=== PATIENT | male | born 1975 | race Caucasian/White ===

== ENCOUNTER 2019-09-04 07:11 | Emergency (ER) | payer OTHER ==
[2019-09-04] MEDS ORDERED: Cyclobenzaprine 10 MG Tab PO ONE (07:31)
--- NOTE | 2019-09-04 07:51 | EDM.PDOC ---
ED HPI GENERAL MEDICAL PROBLEM - General Chief Complaint: Back Pain or Injury Stated Complaint: FELL IN SNOW- HURT BACK Time Seen by Provider: 09/04/19 07:47 Source of Information: Reports: Patient History Limitations: Reports: No Limitations - History of Present Illness INITIAL COMMENTS - FREE TEXT/NARRATIVE: Patient is 44-year-old male with a past medical history of diabetes presenting with chief complaint of low back pain. Low back pain started after falling this morning and some ice. Pain started after the injury around 5:30 AM. Patient states he slipped and fell landing on his lower back, right side. Patient did not strike his head did not suffer any loss of consciousness. Patient was ambulatory immediately afterwards and pain gradually worsened as he tried to drive to work. Patient denies any radiation of the pain. Pain is primarily in the mid and right-sided low back. Patient denies any urinary incontinence, saddle paresthesias, leg weakness. Patient took ibuprofen with minimal relief. In addition to that documented in the HPI above, the additional ROS was obtained : Constitutional: Denies fevers or chills Eyes: Denies vision changes ENMT: Denies sore throat CV: Denies chest pain Resp: Denies SOB GI: Denies vomiting or diarrhea : Denies painful urination MSK: Per HPI Skin: Denies new rashes Neuro: Denies new numbness or tingling or weakness Endocrine: Denies unexpected weight loss Heme: Denies bleeding disorders I have reviewed the triage vital signs Const: Well nourished, well developed, appears stated age Eyes: PERRL, no conjunctival injection HENT: NCAT, Neck supple without meningismus CV: RRR, Warm, well-perfused extremities RESP: CTAB, Unlabored respiratory effort GI: soft, non-tender, non-distended, no masses MSK: Mild midline lumbar tenderness in the L2-L3 area and right-sided paraspinal tenderness. No step-offs noted. No gross deformities appreciated Skin: Warm, dry. 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 Lower extremity motor and sensory intact.. Psych: Appropriate mood and affect Assessment and plan Patient is a 44-year-old male presenting with low back pain. The x-ray demonstrates possible old compression fracture around L1. However based on clinical exam, mechanism of injury and appearance of x-ray I believe this is an old fracture and not acute. In addition, the patient has no signs or symptoms of cauda equina or spinal cord injury. Patient will be discharged home with pain medication and strict return precautions. All questions addressed and answered. Patient agrees with plan. Right lower back Pain Score (Numeric/FACES): 6 - Related Data Allergies Allergy/AdvReac Type Severity Reaction Status Date / Time amoxicillin Allergy Rash Verified 09/04/19 07:25 morphine Allergy Nausea and Verified 09/04/19 07:25 Vomiting Home Meds: Home Meds Dapagliflozin Propanediol [Farxiga] 10 mg PO DAILY 09/04/19 [History] glipiZIDE [Glucotrol] 10 mg PO DAILY 09/04/19 [History] metFORMIN [Glucophage] 500 mg PO BID 09/04/19 [History] Past Medical History - Past Health History Medical/Surgical History: Denies Medical/Surgical History Endocrine/Metabolic History: Reports: Diabetes, Type II - Infectious Disease History Infectious Disease History: Reports: None Social & Family History - Family History Family Medical History: Noncontributory - Caffeine Use Caffeine Use: Reports: Coffee - Recreational Drug Use Recreational Drug Use: No ED ROS GENERAL - Review of Systems Review Of Systems: See Below ED EXAM,LOWER BACK PAIN/INJURY - Physical Exam Exam: See Below Course - Vital Signs Last Recorded V/S: Last Vital Signs Temp 36.3 C 09/04/19 07:34 Pulse 83 09/04/19 07:34 Resp 19 09/04/19 07:34 BP 145/93 H 09/04/19 07:34 Pulse Ox 97 09/04/19 07:34 - Orders/Labs/Meds Meds: Medications Discontinued Medications Generic Name Dose Route Start Last Admin Trade Name Staci PRN Reason Stop Dose Admin Cyclobenzaprine HCl 10 mg 09/04/19 07:31 09/04/19 08:03 Flexeril PO 09/04/19 07:32 10 mg ONETIME ONE Administration Departure - Departure Time of Disposition: 08:15 Disposition: Home, Self-Care 01 Clinical Impression: Low back pain - Discharge Information Instructions: Musculoskeletal Pain Referrals: PCP,Not In Area [Primary Care Provider] - Forms: ED Department Discharge Additional Instructions: The following information is given to patients seen in the emergency department who are being discharged to home. This information is to outline your options for follow-up care. We provide all patients seen in our emergency department with a follow-up referral. The need for follow-up, as well as the timing and circumstances, are variable depending upon the specifics of your emergency department visit. If you don't have a primary care physician on staff, we will provide you with a referral. We always advise you to contact your personal physician following an emergency department visit to inform them of the circumstance of the visit and for follow-up with them and/or the need for any referrals to a consulting specialist. The emergency department will also refer you to a specialist when appropriate. This referral assures that you have the opportunity for follow-up care with a specialist. All of these measure are taken in an effort to provide you with optimal care, which includes your follow-up. Under all circumstances we always encourage you to contact your private physician who remains a resource for coordinating your care. When calling for follow-up care, please make the office aware that this follow-up is from your recent emergency room visit. If for any reason you are refused follow-up, please contact the [facility] Emergency Department at and asked to speak to the emergency department charge nurse. Sepsis Event Note - Evaluation Sepsis Screening Result: No Definite Risk - Focused Exam Vital Signs: Vital Signs Temp Pulse Resp BP Pulse Ox 09/04/19 07:34 36.3 C 83 19 145/93 H 97 Date Exam was Performed: 09/04/19 Time Exam was Performed: 08:14
--- NOTE | 2019-09-04 08:07 | CR ---
Lumbar spine: AP, lateral and coned-down lateral view centered to the lumbosacral junction. Mild scoliosis is seen. Compression deformity with anterior wedging is seen of L1. Other vertebral body heights are maintained. Disc spaces are maintained. Pedicles are intact. Transverse and spinous processes are intact. Mild scattered anterior endplate osteophytes are seen at the thoracolumbar junction. Impression: 1. Anterior wedging of L1. This is most likely old. Please correlate if this matches patient's clinical symptoms. 2. Endplate osteophytes at the thoracolumbar junction. 3. Mild scoliosis. Diagnostic code #2 Study was dictated in [place] Standard Time
== END 2019-09-04 08:25 | disposition home or self-care (01) ==
LOC: EDSEX 07:11 → MW.ED 07:11
DX: M54.5 Low back pain (principal); E11.9 Type 2 diabetes mellitus without complications; Z88.1 Allergy status to other antibiotic agents; Z88.5 Allergy status to narcotic agent; Z79.84 Long term (current) use of oral hypoglycemic drugs; Z79.899 Other long term (current) drug therapy
CPT/HCPCS: 72100; 99283; A9270

== ENCOUNTER 2020-04-06 14:55 | Emergency (ER) | payer OTHER ==
--- NOTE | 2020-04-06 15:35 | EDM.PDOC ---
ED HPI GENERAL MEDICAL PROBLEM - General Chief Complaint: Lower Extremity Injury/Pain Stated Complaint: BRUISE ON RIGHT LEG Time Seen by Provider: 04/06/20 15:08 Source of Information: Reports: Patient, Old Records History Limitations: Reports: No Limitations - History of Present Illness INITIAL COMMENTS - FREE TEXT/NARRATIVE: 44-year-old male with past medical history of diabetes mellitus presenting with a bruise to the right thigh and scrotal pain. Patient noticed a large bruise to the distal medial aspect of the right thigh approximately 1 week ago. This was not associated with any trauma. It is not painful. Patient denies any hematuria, hemoptysis, epistaxis, gingival bleeding, history of bleeding disorder, or any bruising elsewhere. Denies fatigue. Patient also reports a 2-week history of pain to the right side of the scrotum just cephalad to the epididymis. No history of any trauma. Denies any genital lesions or ulcers, penile discharge, dysuria, urinary frequency, or hematuria. No prior history of STIs. Past medical history: Reviewed, no additional pertinent history. Surgical history: Reviewed in system, no additional pertinent history. Social history: Reviewed in system, no additional pertinent history. Family history: Reviewed in system, no additional pertinent history. PHYSICAL EXAM Vital signs reviewed. Nursing notes reviewed. Constitutional: Awake, alert, non-distressed. Head: Normocephalic, atraumatic. Eyes: EOMI, conjunctiva normal, no discharge, no scleral icterus. Ears, Nose, Throat: External ears and nose normal, moist oral mucosa. No palatal petechiae or gingival bleeding. Cardiovascular: 2+ radial pulse, capillary refill less than 2 seconds. No lower extremity edema. Bilateral lower extremities appear symmetric, no swelling or size discrepancy appreciated. Pulmonary: normal work of breathing, no accessory muscle use. Abdomen/GI: Soft, nontender, nondistended, no guarding or rigidity, no masses. : Mild tenderness to palpation just cephalad to the right epididymis. No testicular swelling or masses. Penis normal on external examination, no discharge or lesions. Musculoskeletal: No deformities. Integumentary: Appropriate color for ethnicity, warm, dry, no pallor or jaundice, no rash. Large contusion noted to the distal medial aspect of the right thigh. No erythema, warmth, or streaking noted to the bilateral lower extremities. Neurologic: Alert, answering questions appropriately, normal speech, no facial droop, moving all extremities well. Psychiatric: Appropriate mood and affect, normal thought process. right groin area Pain Score (Numeric/FACES): 2 - Related Data Allergies Allergy/AdvReac Type Severity Reaction Status Date / Time amoxicillin Allergy Rash Verified 04/06/20 15:10 morphine Allergy Nausea and Verified 04/06/20 15:10 Vomiting Home Meds: Home Meds Dapagliflozin Propanediol [Farxiga] 10 mg PO DAILY 09/04/19 [History] glipiZIDE [Glucotrol] 10 mg PO DAILY 09/04/19 [History] metFORMIN [Glucophage] 500 mg PO BID 09/04/19 [History] Past Medical History - Past Health History Medical/Surgical History: Denies Medical/Surgical History HEENT History: Reports: None Cardiovascular History: Reports: None Respiratory History: Reports: None Gastrointestinal History: Reports: None Genitourinary History: Reports: None Musculoskeletal History: Reports: None Neurological History: Reports: None Psychiatric History: Reports: None Endocrine/Metabolic History: Reports: Diabetes, Type II 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 Hematologic History: Reports: None Immunologic History: Reports: None Oncologic (Cancer) History: Reports: None Dermatologic History: Reports: None - Infectious Disease History Infectious Disease History: Reports: None - Past Surgical History Head Surgeries/Procedures: Reports: None Male Surgical History: Reports: Vasectomy Social & Family History - Family History Family Medical History: Noncontributory - Tobacco Use Smoking Status *Q: Never Smoker - Caffeine Use Caffeine Use: Reports: Coffee - Recreational Drug Use Recreational Drug Use: No Review of Systems - Review of Systems Review Of Systems: See Below ED EXAM, GENERAL - Physical Exam Exam: See Below Course - Vital Signs Text/Narrative:: Patient hemodynamically stable, afebrile, well-appearing, looks nontoxic. Differential diagnosis includes but is not limited to: contusion, coagulopathy, bleeding disorder, DVT, hematoma, orchitis, epididymitis, hernia, testicular torsion, UTI, STI, varicocele, hydrocele, malignancy, etc. Urinalysis shows trace ketones, no blood or evidence of infection. Scrotal ultrasound demonstrated a right-sided varicocele, testicles look structurally normal. Normal blood flow bilaterally. Small bilateral hydroceles. 2 small epididymal cysts on the right side. There is no evidence of coagulopathy such as palatal petechiae or other bruising or bleeding type symptoms, so we did not pursue blood count or coagulopathy work-up at this point. I suspect the patient had some occult trauma which caused him to sustain a contusion on his right thigh. Presentation is not consistent with a DVT, there is no erythema or swelling or pain. No chest discomfort or shortness of breath. There is no associated erythema or induration to suggest cellulitis. No symptoms to suggest an STI or UTI. Urinalysis does not look infected. There is no evidence of an inguinal hernia on examination. We did pursue testicular ultrasound, which showed no evidence of an acute surgical emergency. I did offer to pursue CT imaging of the abdomen/pelvis with contrast given that we have not elucidated the etiology of the patient's pain. At this point, the patient wants to decline a CT scan. I explained that there is a small possibility of renal malignancy or other vascular obstruction causing new onset varicocele and the patient understands the risks of an incomplete work-up by foregoing CT imaging today - he understands and accepts this risk. He wants to try symptomatic treatment with [id number] acetaminophen and ibuprofen and wants to follow-up with the family medicine clinic for further evaluation and treatment. I will also give him contact information for the urology clinic for routine follow-up of the varicocele. He understands that he should come back to the emergency department if his pain worsens or if he develops any new or worsening symptoms. Plan: Patient is stable to discharge home with outpatient primary care and urology clinic follow-up. Strict emergency department return precautions were provided, patient indicated understanding. All questions were answered prior to departure. Discharged in good condition. Last Recorded V/S: Last Vital Signs Temp 36.1 C 04/06/20 15:10 Pulse 71 04/06/20 17:18 Resp 18 04/06/20 17:18 BP 138/75 04/06/20 17:18 Pulse Ox 96 04/06/20 17:18 - Orders/Labs/Meds Orders: Active Orders 24 hr Category Date Time Status Scrotal Duplex Ltd [US] Routine Exams 04/06/20 14:20 Taken Labs: Laboratory Tests 04/06/20 Range/Units 15:40 Urine Color YELLOW Urine Appearance CLEAR Urine pH 5.5 (5.0-8.0) Ur Specific [place] 1.020 (1.001-1.035) Urine Protein NEGATIVE (NEGATIVE) mg/dL Urine Glucose (UA) >=1000 (NEGATIVE) mg/dL Urine Ketones TRACE H (NEGATIVE) mg/dL Urine Occult Blood NEGATIVE (NEGATIVE) Urine Nitrite NEGATIVE (NEGATIVE) Urine Bilirubin NEGATIVE (NEGATIVE) Urine Urobilinogen 0.2 (<2.0) EU/dL Ur Leukocyte Esterase NEGATIVE (NEGATIVE) Departure - Departure Time of Disposition: 17:10 Disposition: Home, Self-Care 01 Condition: Good Clinical Impression: Right inguinal pain, Contusion of thigh Contusion of thigh, right Qualifiers: Encounter type: initial encounter Qualified Code(s): S70.11XA - Contusion of right thigh, initial encounter - Discharge Information *PRESCRIPTION DRUG MONITORING PROGRAM REVIEWED*: Not Applicable *COPY OF PRESCRIPTION DRUG MONITORING REPORT IN PATIENT CORTEZ: Not Applicable Instructions: Muscle Pain, Adult, Contusion, [id number] Referrals: [facility] - Family Practice [Provider Group] - 1 Week (For follow-up of inguinal pain.) Forms: ED Department Discharge Additional Instructions: You were seen in the emergency department for thigh pain and groin pain. Your thigh bruising appears to be a hematoma, or collection of blood. I do not suspect a blood clot in your leg does not appear to have an infection. There is no specific treatment and this should get better with time. Regarding your groin pain, there is no evidence of an infection or hernia at this point. Your ultrasound showed that you have a varicocele, or abnormal collection of blood vessels on top of the right testicle. This is not typically painful. I am not sure how long you have had this. There is some concern about a tumor obstructing blood vessels in the kidney or close to the kidney that could potentially cause you to have this condition. We did offer a CT scan of the abdomen and pelvis at this point you do not want to pursue the CT scan. You understand that our work-up is somewhat incomplete by skipping the CT scan. We will have you follow-up with a family medicine clinic and a urologist for further work-up and treatment of the groin pain. In the meantime you can take acetaminophen or ibuprofen as directed on the package for pain. You can also try an athletic supporter/athletic cup to see if this helps with your inguinal pain. If your pain worsens or if you develop fever, chills, or any other new or concerning symptoms she should come back to the ER right away. Please return the emergency department immediately if your symptoms worsen or if you feel worse. [facility] - Urology [address] [place] [id number] Thank you for choosing the [facility] emergency department in [place] for your medical needs today. It was a pleasure caring for you. The following information is given to patients seen in the emergency department who are being discharged. This information is to outline your options for follow-up care. We provide all patients seen in our emergency department with a follow-up referral. The need for follow-up, as well as the timing and circumstances, are variable depending upon the specifics of your emergency department visit. If you don't have a primary care physician on staff, we will provide you with a referral. We always advise you to contact your personal physician following an emergency department visit to inform them of the circumstance of the visit and for follow-up with them and/or the need for any referrals to a consulting specialist. The emergency department will also refer you to a specialist when appropriate. This referral assures that you have the opportunity for follow-up care with a specialist. All of these measure are taken in an effort to provide you with optimal care, which includes your follow-up. Under all circumstances we always encourage you to contact your private physician who remains a resource for coordinating your care. When calling for follow-up care, please make the office aware that this follow-up is from your recent emergency room visit. If for any reason you are refused follow-up, please contact the [facility] Emergency Department at and asked to speak to the emergency department charge nurse. If you do not have a primary care physician that is caring for you, you can contact these clinics below to set up an appointment to establish care: Lencho Roblero [facility] - Primary Care [address] [place] [address] [facility] [address] [place] [id number] Sepsis Event Note (ED) - Evaluation Sepsis Screening Result: No Definite Risk - Focused Exam Vital Signs: Vital Signs Temp Pulse Resp BP Pulse Ox 04/06/20 17:18 71 18 138/75 96 04/06/20 15:10 36.1 C 78 18 138/85 97 - My Orders Last 24 Hours: My Active Orders 04/06/20 14:20 Scrotal Duplex Ltd [US] Routine - Assessment/Plan Last 24 Hours: My Active Orders 04/06/20 14:20 Scrotal Duplex Ltd [US] Routine
--- NOTE | 2020-04-08 14:51 | US ---
Testicular ultrasound: Multiple real-time images of the testicles were obtained. Testicles have a homogeneous ultrasound appearance. No intratesticular abnormality is seen. Normal arterial and venous blood flow seen within the testicles. Varicocele is noted on the right side. 2 small epididymal cysts are noted on the right side measuring 7 mm and 7 mm. Small bilateral hydroceles are seen. Measurements: Right testicle: 5.0 x 2.4 x 3.5 cm Left testicle: 4.9 x 2.6 x 3.2 cm Impression: 1. Right-sided varicocele. 2. 2 small epididymal cysts on the right side. 3. Small bilateral hydroceles. Diagnostic code #3 This report was dictated in MDT MTDD
== END 2020-04-06 17:19 | disposition home or self-care (01) ==
LOC: MW.ED 14:55
DX: M79.81 Nontraumatic hematoma of soft tissue (principal); R10.31 Right lower quadrant pain; E11.9 Type 2 diabetes mellitus without complications; Z98.52 Vasectomy status; Z88.1 Allergy status to other antibiotic agents; Z88.5 Allergy status to narcotic agent
CPT/HCPCS: 76870; 76870-26; 81003; 93976; 93976-26; 99283; 99284-25

== ENCOUNTER 2020-05-23 14:19 | Emergency (ER) | payer OTHER ==
[2020-05-23] MEDS ORDERED: Sodium Chloride 0.9% 10 ML Syringe FLUSH PRN (14:37)
[2020-05-23] MEDS ORDERED: Aspirin 81 MG Tab.Chew PO ONE (14:37)
[2020-05-23] MEDS ORDERED: Sodium Chloride 0.9% 2.5 ML Syringe FLUSH PRN ×2 (14:37)
[2020-05-23] MEDS ORDERED: Sodium Chloride 0.9% 1,000 ML IV ONE (14:37)
--- NOTE | 2020-05-23 14:43 | EDM.PDOC ---
ED HPI GENERAL MEDICAL PROBLEM - General Chief Complaint: Chest Pain Stated Complaint: CHEST PAIN Time Seen by Provider: 05/23/20 14:23 - History of Present Illness INITIAL COMMENTS - FREE TEXT/NARRATIVE: History of present illness: Patient presents to the ED with chest pain chest pain began yesterday and is described as pressure to the right side of his chest without radiation there is been some mild shortness of breath no fever chills he has had a cough nothing makes the pain better or worse he has had no leg pain or leg swelling and he does have a positive diagnosis of COVID that was resulted on Saturday. He has diabetes no other medical problems he has not had prior chest pains he is a non- smoker his primary care doctor told him to come and get checked out Review of systems: As per history of present illness and below otherwise all systems reviewed and negative. Past medical history: As per history of present illness and as reviewed below otherwise noncontributory. Surgical history: As per history of present illness and as reviewed below otherwise noncontributory. Social history: No reported history of drug or alcohol abuse. Family history: As per history of present illness and as reviewed below otherwise noncontributory. Physical exam: HEENT: Atraumatic, normocephalic, pupils reactive, negative for conjunctival pallor or scleral icterus, mucous membranes moist, throat clear, neck supple, nontender, trachea midline. Lungs: Clear to auscultation, breath sounds equal bilaterally, chest nontender. Heart: S1S2, regular, negative for clicks, rubs, or JVD. Abdomen: Soft, nondistended, nontender. Negative for masses or hepatosplenomegaly. Negative for costovertebral tenderness. Pelvis: Stable nontender. Genitourinary: Deferred. Rectal: Deferred. Extremities: Atraumatic, negative for cords or calf pain. Neurovascular unremarkable. Neuro: Awake, alert, oriented. Cranial nerves II through XII unremarkable. Cerebellum unremarkable. Motor and sensory unremarkable throughout. Exam nonfocal. Diagnostics: [] Therapeutics: [] Impression: Chest pain [] Plan: Chest pain work-up reassess the patient. [] Definitive disposition and diagnosis as appropriate pending reevaluation and review of above. chest Pain Score (Numeric/FACES): 2 - Related Data Allergies Allergy/AdvReac Type Severity Reaction Status Date / Time amoxicillin Allergy Rash Verified 05/23/20 14:28 morphine Allergy Nausea and Verified 05/23/20 14:28 Vomiting Home Meds: Home Meds Dapagliflozin Propanediol [Farxiga] 10 mg PO DAILY 09/04/19 [History] glipiZIDE [Glucotrol] 10 mg PO DAILY 09/04/19 [History] metFORMIN [Glucophage] 500 mg PO BID 09/04/19 [History] Ascorbic Acid [Vitamin C] 1 tab PO DAILY 05/23/20 [History] Past Medical History - Past Health History Medical/Surgical History: Denies Medical/Surgical History HEENT History: Reports: None Cardiovascular History: Reports: None Respiratory History: Reports: None Gastrointestinal History: Reports: None Genitourinary History: Reports: None Musculoskeletal History: Reports: None Neurological History: Reports: None Psychiatric History: Reports: None Endocrine/Metabolic History: Reports: Diabetes, Type II Insulin Pump Model and Biomass Facilitator: None Hematologic History: Reports: None Immunologic History: Reports: None Oncologic (Cancer) History: Reports: None Dermatologic History: Reports: None - Infectious Disease History Infectious Disease History: Reports: Chicken Pox - Past Surgical History Head Surgeries/Procedures: Reports: None Male Surgical History: Reports: Vasectomy Social & Family History - Family History Family Medical History: Noncontributory - Tobacco Use Smoking Status *Q: Never Smoker - Caffeine Use Caffeine Use: Reports: Coffee - Recreational Drug Use Recreational Drug Use: No ED ROS GENERAL - Review of Systems Review Of Systems: See Below ED EXAM, GENERAL - Physical Exam Exam: See Below EKG INTERPRETATION EKG Interpretation Comments: EKG is normal sinus rhythm rate of [address]-T changes no santosh ischemia read and interpreted by me Course - Vital Signs Text/Narrative:: Patient is feeling well vital signs are stable troponin is negative the EKG was nonischemic a one-view portable chest was read interpreted by me no acute cardiopulmonary pathology is evident. He will be discharged home he is to self isolate until symptom-free from his COVID. Return to the ED for severe chest pain or severe respiratory distress. Last Recorded V/S: Last Vital Signs Temp 35.4 C L 05/23/20 14:25 Pulse 79 05/23/20 14:25 Resp 18 05/23/20 14:25 BP 142/83 H 05/23/20 14:25 Pulse Ox 97 05/23/20 14:25 - Orders/Labs/Meds Orders: Active Orders 24 hr Category Date Time Status EKG Documentation Completion [RC] STAT Care 05/23/20 14:37 Active Sodium Chloride 0.9% [Saline Flush] Med 05/23/20 14:37 Active 10 ml FLUSH ASDIRECTED PRN Sodium Chloride 0.9% [Saline Flush] Med 05/23/20 14:37 Active 2.5 ml FLUSH ASDIRECTED PRN Sodium Chloride 0.9% [Saline Flush] Med 05/23/20 14:37 Active 2.5 ml FLUSH ASDIRECTED PRN Saline Lock Insert [OM.PC] Stat Oth 05/23/20 14:37 Ordered Medication Orders Sodium Chloride (Saline Flush) 10 ml FLUSH ASDIRECTED PRN PRN Reason: Keep Vein Open Last Admin: 05/23/20 14:50 Dose: 10 ml Documented by: CHIQUI Sodium Chloride (Saline Flush) 2.5 ml FLUSH ASDIRECTED PRN PRN Reason: Keep Vein Open Last Admin: 05/23/20 14:50 Dose: 2.5 ml Documented by: CHIQUI Sodium Chloride (Saline Flush) 2.5 ml FLUSH ASDIRECTED PRN PRN Reason: Keep Vein Open Last Admin: 05/23/20 14:50 Dose: 2.5 ml Documented by: CHIQUI Labs: Laboratory Tests 05/23/20 05/23/20 Range/Units 14:29 14:29 WBC 7.71 (4.0-11.0) K/uL RBC 5.84 (4.50-5.90) M/uL Hgb 17.6 H (13.0-17.0) g/dL Hct 51.7 H (38.0-50.0) % MCV 88.5 (80.0-98.0) fL MCH 30.1 (27.0-32.0) pg MCHC 34.0 (31.0-37.0) g/dL RDW Std Deviation 43.6 (28.0-62.0) fl RDW Coeff of Bernardo 14 (11.0-15.0) % Plt Count 213 (150-400) K/uL MPV 10.90 (7.40-12.00) fL Neut % (Auto) 62.8 (48.0-80.0) % Lymph % (Auto) 27.9 (16.0-40.0) % Franklin % (Auto) 6.6 (0.0-15.0) % Eos % (Auto) 1.9 (0.0-7.0) % Baso % (Auto) 0.8 (0.0-1.5) % Neut # (Auto) 4.8 (1.4-5.7) K/uL Lymph # (Auto) 2.2 (0.6-2.4) K/uL Franklin # (Auto) 0.5 (0.0-0.8) K/uL Eos # (Auto) 0.2 (0.0-0.7) K/uL Baso # (Auto) 0.1 (0.0-0.1) K/uL Nucleated RBC % 0.0 /100WBC Nucleated RBCs # 0 K/uL Sodium 137 (136-148) mmol/L Potassium 4.3 (3.5-5.1) mmol/L Chloride 100 (98-107) mmol/L Carbon Dioxide 26.9 (21.0-32.0) mmol/L BUN 21 H (7.0-18.0) mg/dL Creatinine 0.9 (0.8-1.3) mg/dL Est Cr Clr Drug Dosing 109.23 mL/min Estimated GFR (MDRD) > 60.0 ml/min Glucose 212 H (74-106) mg/dL Calcium 9.4 (8.5-10.1) mg/dL Total Bilirubin 0.4 (0.2-1.0) mg/dL AST 13 L (15-37) IU/L ALT 50 (14-63) IU/L Alkaline Phosphatase 49 (46-116) U/L Troponin I < 0.050 (0.000-0.056) ng/mL Total Protein 8.2 (6.4-8.2) g/dL Albumin 4.5 (3.4-5.0) g/dL Globulin 3.7 (2.6-4.0) g/dL Albumin/Globulin Ratio 1.2 (0.9-1.6) Meds: Medications Generic Name Dose Route Start Last Admin Trade Name Freq PRN Reason Stop Dose Admin Sodium Chloride 10 ml 05/23/20 14:37 05/23/20 14:50 Saline Flush FLUSH 10 ml ASDIRECTED PRN Administration Keep Vein Open Sodium Chloride 2.5 ml 05/23/20 14:37 05/23/20 14:50 Saline Flush FLUSH 2.5 ml ASDIRECTED PRN Administration Keep Vein Open Sodium Chloride 2.5 ml 05/23/20 14:37 05/23/20 14:50 Saline Flush FLUSH 2.5 ml ASDIRECTED PRN Administration Keep Vein Open Discontinued Medications Generic Name Dose Route Start Last Admin Trade Name Staci PRN Reason Stop Dose Admin Aspirin 324 mg 05/23/20 14:37 05/23/20 14:49 Aspirin PO 05/23/20 14:38 324 mg ONETIME ONE Administration Sodium Chloride 1,000 mls @ 999 mls/hr 05/23/20 14:37 05/23/20 14:50 Normal Saline IV 05/23/20 15:37 999 mls/hr BOLUS ONE Administration Departure - Departure Time of Disposition: 16:38 Disposition: Home, Self-Care 01 Condition: Good Clinical Impression: Chest pain, Upper respiratory infection - Discharge Information *PRESCRIPTION DRUG MONITORING PROGRAM REVIEWED*: Not Applicable *COPY OF PRESCRIPTION DRUG MONITORING REPORT IN PATIENT CORTEZ: Not Applicable Instructions: Viral Respiratory Infection, [id number], Nonspecific Chest Pain, Adult Referrals: PCP,Not In Area [Primary Care Provider] - Forms: ED Department Discharge Additional Instructions: The following information is given to patients seen in the emergency department who are being discharged to home. This information is to outline your options for follow-up care. We provide all patients seen in our emergency department with a follow-up referral. The need for follow-up, as well as the timing and circumstances, are variable depending upon the specifics of your emergency department visit. If you don't have a primary care physician on staff, we will provide you with a referral. We always advise you to contact your personal physician following an emergency department visit to inform them of the circumstance of the visit and for follow-up with them and/or the need for any referrals to a consulting specialist. The emergency department will also refer you to a specialist when appropriate. This referral assures that you have the opportunity for follow-up care with a specialist. All of these measure are taken in an effort to provide you with optimal care, which includes your follow-up. Under all circumstances we always encourage you to contact your private physician who remains a resource for coordinating your care. When calling for follow-up care, please make the office aware that this follow-up is from your recent emergency room visit. If for any reason you are refused follow-up, please contact the Emergency Department at and asked to speak to the emergency department charge nurse. Sepsis Event Note (ED) - Evaluation Sepsis Screening Result: No Definite Risk - Focused Exam Vital Signs: Vital Signs Temp Pulse Resp BP Pulse Ox 05/23/20 14:25 35.4 C L 79 18 142/83 H 97 - My Orders Last 24 Hours: My Active Orders 05/23/20 14:37 EKG Documentation Completion [RC] STAT Sodium Chloride 0.9% [Saline Flush] 10 ml FLUSH ASDIRECTED PRN Sodium Chloride 0.9% [Saline Flush] 2.5 ml FLUSH ASDIRECTED PRN Sodium Chloride 0.9% [Saline Flush] 2.5 ml FLUSH ASDIRECTED PRN Saline Lock Insert [OM.PC] Stat - Assessment/Plan Last 24 Hours: My Active Orders 05/23/20 14:37 EKG Documentation Completion [RC] STAT Sodium Chloride 0.9% [Saline Flush] 10 ml FLUSH ASDIRECTED PRN Sodium Chloride 0.9% [Saline Flush] 2.5 ml FLUSH ASDIRECTED PRN Sodium Chloride 0.9% [Saline Flush] 2.5 ml FLUSH ASDIRECTED PRN Saline Lock Insert [OM.PC] Stat
[2020-05-23 15:13] LABS: BLOOD UREA NITROGEN,BUN 21 mg/dL (7.0-18.0); CARBON DIOXIDE,CO2 26.9 mmol/L (21.0-32.0); CHLORIDE,CL 100 mmol/L (98-107); GLUCOSE RANDOM 212 mg/dL (74-106); POTASSIUM,K 4.3 mmol/L (3.5-5.1); SODIUM,NA 137 mmol/L (136-148)
--- NOTE | 2020-05-23 16:03 | CR ---
INDICATION: Chest pain. TECHNIQUE: Chest 1 view. COMPARISON: None FINDINGS: Cardiovascular and mediastinum: Heart size and vasculature are normal in caliber and appearance. Mediastinum is within normal limits. Lungs and pleural space: Lungs are clear. No sign of infiltrate or mass. No sign of pleural effusion. No pneumothorax. Bones and soft tissues: No significant findings. IMPRESSION: Unremarkable chest. Dictated by Syed Zabala MD @ May 23 2020 4:01PM Signed by Dr. Syed Zabala @ May 23 2020 4:01PM
== END 2020-05-23 16:48 | disposition home or self-care (01) ==
LOC: MW.ED 14:19
DX: R07.89 Other chest pain (principal); J06.9 Acute upper respiratory infection, unspecified; E11.9 Type 2 diabetes mellitus without complications; Z88.1 Allergy status to other antibiotic agents; Z88.5 Allergy status to narcotic agent; Z79.84 Long term (current) use of oral hypoglycemic drugs; Z79.899 Other long term (current) drug therapy
CPT/HCPCS: 36415; 71045; 80053; 84484; 85025; 93005; 96360; 99285; A9270; J7030; 93010; 99283

== ENCOUNTER 2021-09-11 11:55 | Emergency (ER) | payer SELFPAY ==
[2021-09-11] MEDS ORDERED: Ketorolac 30 MG/ML SDV IM ONE (16:16)
[2021-09-11] MEDS ORDERED: Ondansetron 4 MG Tab.DIS PO ONE (16:16)
[2021-09-11 17:32] LABS: BLOOD UREA NITROGEN,BUN 16 mg/dL (7.0-18.0); CARBON DIOXIDE,CO2 22.1 mmol/L (21.0-32.0); CHLORIDE,CL 99 mmol/L (98-107); GLUCOSE RANDOM 109 mg/dL (74-106); LIPASE 108 U/L (73-393); POTASSIUM,K 4.2 mmol/L (3.5-5.1); SODIUM,NA 135 mmol/L (136-148)
== END 2021-09-11 18:28 | disposition home or self-care (01) ==
LOC: MW.ED 11:55
DX: K57.32 Diverticulitis of large intestine without perforation or abscess without bleeding (principal); E11.9 Type 2 diabetes mellitus without complications; Z88.0 Allergy status to penicillin; Z88.5 Allergy status to narcotic agent; Z79.84 Long term (current) use of oral hypoglycemic drugs; Z20.822 Contact with and (suspected) exposure to COVID-19
CPT/HCPCS: 36415; 71045; 74176; 80048; 81001; 83690; 85025; 87635; 96372; 99284; A9270; J1885; U0002